=== PATIENT | female | born 1965 | race Caucasian/White ===

== ENCOUNTER 2021-05-22 17:27 | Emergency (ER) | payer MEDICARE, MEDICAID ==
[~2021-05-22] VITALS: Ht 165.1 cm; Wt 117.0 kg
[2021-05-22 17:29] VITALS: BP 179/92
--- NOTE | 2021-05-22 18:18 | NUR ---
ALL RESULTS ARE BACK AT THIS TIME. CHART UP FOR RECHECK.
--- NOTE | 2021-05-22 18:30 | NUR ---
N/O RECEIVED FOR LUMBAR XRAY
--- NOTE | 2021-05-22 18:55 | NUR ---
ALL RESULTS ARE BACK AT THIS TIME. CHART UP FOR RECHECK.
[2021-05-22] MEDS ORDERED: KETOROLAC 30 MG/1 ML ONE (19:22)
--- NOTE | 2021-05-22 19:26 | NUR ---
TELECOMMUNICATIONS MANAGER PER MAR.
[2021-05-22] MEDS ORDERED: KETOROLAC 30 MG/1 ML IM ONE (19:30)
== END 2021-05-22 19:37 | disposition home or self-care (01) ==
LOC: ED 17:57
DX: S39.012A Strain of muscle, fascia and tendon of lower back, initial encounter (principal); S90.32XA Contusion of left foot, initial encounter; W22.8XXA Striking against or struck by other objects, initial encounter; Y93.89 Activity, other specified; Y92.89 Other specified places as the place of occurrence of the external cause; Y99.8 Other external cause status
CPT/HCPCS: 72110; 73630; 96372; 99284; J1885